=== PATIENT | female | born 1990 | race Caucasian/White ===

== ENCOUNTER 2018-01-11 10:50 | Emergency (ER) | payer OTHER ==
[2018-01-11 10:56] VITALS: TEMP 98.1; O2SAT 97
--- NOTE | 2018-01-11 11:57 | EDPHY ---
H & P Time Seen by Provider: 01/11/18 11:07 HPI/ROS: CHIEF COMPLAINT: Left knee injury HISTORY OF PRESENT ILLNESS: 21-year-old female presents to the emergency department with injury. This was playing soccer last evening and states that after she kicked the ball she planted her foot 100 and somehow twisted left knee. She complains of pain especially to the lateral and posterior aspect of the left knee. Unable to fully extend her left knee secondary to pain. Denies any other trauma or injury. ROS: Denies numbness tingling her toes or pain in her left ankle or hip. Past Medical/Surgical History: Negative Social History: Single. 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 She is from [facility] Smoking Status: Never smoked Physical Exam: Examination left knee reveals pain with palpation bladder aspect of the left knee along the lateral collateral ligament, specially over the proximal phalanx of the left knee. She has mild left lateral joint line tenderness. Fully extend her left knee secondary to pain. No pain to palpation TV inspected left knee. Not palpated patella. She has pain with anterior drawer sign although no obvious ligament stability. Calf is nontender. Achilles tendon is intact. Constitutional: Initial Vital Signs Temperature (C) 36.7 C 01/11/18 10:53 Heart Rate 58 L 01/11/18 10:53 Respiratory Rate 16 01/11/18 10:53 Blood Pressure 120/58 L 01/11/18 10:53 O2 Sat (%) 97 01/11/18 10:53 O2 Delivery Mode Room Air Allergies/Adverse Reactions: No Known Allergies Allergy (Unverified 01/11/18 10:56) Home Medications: Medication Instructions Recorded Bc Implant 01/11/18 MDM/Departure - MDM Imaging Results: Imaging Impressions Knee X-Ray 01/11/18 11:03 Impression: No acute osseous findings. Imaging: I viewed and interpreted images myself Procedures: Patient was placed in straight leg knee immobilizer and examined post application in good placement with normal saline. ED Course/Re-evaluation: 27-year-old female presents to the emergency department with left knee injury. X-rays reveal no fractures. She likely has internal derangement of the knee. She was placed in straight leg knee immobilizer and given orthopedic referral. - Depart Disposition: Home, Routine, Self-Care Clinical Impression: Left knee sprain Qualifiers: Encounter type: initial encounter Involved ligament of knee: unspecified ligament Qualified Code(s): S83.92XA - Sprain of unspecified site of left knee, initial encounter Condition: Good Instructions: Knee Sprain (ED), Knee Immobilizer (ED) Additional Instructions: Knee immobilizer comfort and support. Weightbear as tolerated. Ibuprofen 600 mg every 8 hr as a for pain. Referrals: Trevor Reyes MD [Medical Doctor] - 5-7 days, call for appt. (Orthopedic surgeon on-call)
[2018-01-11 12:23] VITALS: BP 105/69; PULSE 94; RESP 18
== END 2018-01-11 12:22 | disposition home or self-care (01) ==
DX: S83.92XA Sprain of unspecified site of left knee, initial encounter (principal); W22.8XXA Striking against or struck by other objects, initial encounter; Y99.8 Other external cause status; Y93.66 Activity, soccer
CPT/HCPCS: L1830